=== PATIENT | male | born 1995 | race African-American/Black ===

== ENCOUNTER 2019-02-21 11:06 | Emergency (ER) | payer MEDICAID ==
[~2019-02-21] VITALS: Ht 200.7 cm; Wt 109.2 kg
[~2019-02-21 11:06] MED LIST: ACID1TAB4 PO; AMLO-511 PO; KDUR10 PO; METR500 PO
[2019-02-21] MEDS ORDERED: KETOROLAC TROMETHAMINE 30 MG/ML VIAL IM ONE (13:00)
[2019-02-21 14:32] VITALS: BP 128/67
== END 2019-02-21 14:34 | disposition home or self-care (01) ==
LOC: EMS 11:06
DX: S83.412A Sprain of medial collateral ligament of left knee, initial encounter (principal); I10 Essential (primary) hypertension; F12.90 Cannabis use, unspecified, uncomplicated; Z79.899 Other long term (current) drug therapy
CPT/HCPCS: 29505; 73562; 96372; 99283; J1885

== ENCOUNTER 2024-06-09 22:41 | Emergency (ER) | payer MEDICAID, OTHER ==
[~2024-06-09] VITALS: Ht 190.5 cm; Wt 104.5 kg
[~2024-06-09 22:41] MED LIST changes: +AMLO-257 PO; -AMLO-511 PO; -KDUR10 PO; +POTA-92 PO
[2024-06-09 22:47] VITALS: TEMP 97.2
[2024-06-09 23:23] VITALS: BP 121/84; PULSE 62; RESP 12
== END 2024-06-10 03:09 | disposition home or self-care (01) ==
LOC: EMS 22:41
DX: F10.129 Alcohol abuse with intoxication, unspecified (principal); F12.90 Cannabis use, unspecified, uncomplicated; Y90.9 Presence of alcohol in blood, level not specified
CPT/HCPCS: 99281; Z7502